=== PATIENT | male | born 1975 | race Caucasian/White ===

== ENCOUNTER → 2020-07-26 14:58 | Outpatient (BNVA) | payer OTHER, SELFPAY | PROVIDERS: Visit Provider Physician Assistant Medical | DX: S16.1XXD Strain of muscle, fascia and tendon at neck level, subsequent encounter (principal); X58.XXXD Exposure to other specified factors, subsequent encounter; R51.9 Headache, unspecified | CPT/HCPCS: 99213 ==

== ENCOUNTER 2020-08-01 14:14 | Outpatient (REF) | payer OTHER, SELFPAY ==
--- NOTE | 2020-08-01 14:20 | MR_ITS ---
EXAMINATION: MR CERVICAL SPINE WITHOUT CONTRAST CLINICAL INFORMATION: Chronic, persistent cervical spine pain. Decreased range of motion. COMPARISON: Cervical spine radiographs from 06/04/2020. TECHNIQUE: MRI of the cervical spine was obtained using routine sequences without contrast. FINDINGS: Reversal the normal cervical lordosis centered on C4. Otherwise, normal anatomic alignment. Moderate degenerative disc disease from C3-C6. Mild degenerative disc disease at C2-C3 and C6-C7. Associated mixed Modic type discogenic endplate changes, including mild Modic type I discogenic edema at C5-C6. Lipid rich hemangioma within the T1 vertebral body. No suspicious marrow edema. Mild degenerative loss of C6 vertebral body height. Otherwise, the vertebral body heights are largely maintained. No spinal cord signal abnormalities demonstrated in 2 planes. Limited evaluation of the soft tissues of the neck without demonstrated abnormalities. The flow voids of the major cervical vessels are maintained. Normal appearance of the cervicomedullary junction and visualized posterior fossa. SPINAL LEVELS: C2-C3: Normal annular contour. There is no uncovertebral joint arthropathy. There is mild bilateral facet joint arthropathy. There is no neural foraminal stenosis. There is no spinal canal stenosis. C3-C4: Moderate disc-osteophyte complex. There is mild to moderate bilateral uncovertebral joint arthropathy. There is mild bilateral facet joint arthropathy. There is mild bilateral neural foraminal stenosis. There is flattening of the ventral cord without overt spinal canal stenosis. C4-C5: Mild disc-osteophyte complex. There is moderate right and mild left uncovertebral joint arthropathy. There is moderate left and mild right facet joint arthropathy. There is mild bilateral neural foraminal stenosis. There is flattening the ventral cord without overt spinal canal stenosis. C5-C6: Moderate disc-osteophyte complex. There is moderate bilateral uncovertebral joint arthropathy. There is mild to moderate bilateral facet joint arthropathy. There is moderate right and mild left neural foraminal stenosis. There is mild spinal canal stenosis. C6-C7: Mild disc-osteophyte complex. There is mild left and no right uncovertebral joint arthropathy. There is moderate left and mild right facet joint arthropathy. There is moderate left and no right neural foraminal stenosis. There is minimal flattening of the left ventral cord with no spinal canal stenosis. C7-T1: Normal annular contour. There is no uncovertebral joint arthropathy. There is no facet joint arthropathy. There is no neural foraminal stenosis. There is no spinal canal stenosis. IMPRESSION: Moderate multilevel degenerative spondyloarthropathy of the cervical spine as described in detail above. Most notably, there is mild spinal canal stenosis at C5-C6. There are mild to moderate neural foraminal stenoses from C3-C7 (worst at C5-C6 and C6-C7).
== END 2020-08-01 14:15 | disposition home or self-care (01) ==
LOC: HO.MRI 14:14
PROVIDERS: Visit Provider Internal Medicine
DX: M54.2 Cervicalgia (principal); R51.9 Headache, unspecified
CPT/HCPCS: 72141

== ENCOUNTER → 2020-08-08 15:27 | Outpatient (BNVA) | payer OTHER, SELFPAY | PROVIDERS: Visit Provider Physician Assistant Medical | DX: M50.30 Other cervical disc degeneration, unspecified cervical region (principal) | CPT/HCPCS: 99213 ==

== ENCOUNTER → 2021-11-27 08:55 | Outpatient (BNVA) | payer OTHER, SELFPAY | PROVIDERS: Visit Provider Physician Assistant | DX: S16.1XXD Strain of muscle, fascia and tendon at neck level, subsequent encounter (principal); S09.90XD Unspecified injury of head, subsequent encounter; X58.XXXD Exposure to other specified factors, subsequent encounter; H93.19 Tinnitus, unspecified ear | CPT/HCPCS: 99214 ==

== ENCOUNTER → 2021-12-04 14:21 | Outpatient (BNVA) | payer OTHER, SELFPAY | PROVIDERS: Visit Provider Physician Assistant | DX: S16.1XXD Strain of muscle, fascia and tendon at neck level, subsequent encounter (principal); S09.90XD Unspecified injury of head, subsequent encounter; X58.XXXD Exposure to other specified factors, subsequent encounter; H93.19 Tinnitus, unspecified ear | CPT/HCPCS: 99213 ==

== ENCOUNTER → 2021-12-12 10:46 | Outpatient (BNVA) | payer OTHER, SELFPAY | PROVIDERS: Visit Provider Physician Assistant | DX: S16.1XXD Strain of muscle, fascia and tendon at neck level, subsequent encounter (principal); S06.9X0D Unspecified intracranial injury without loss of consciousness, subsequent encounter; X58.XXXD Exposure to other specified factors, subsequent encounter; H93.19 Tinnitus, unspecified ear | CPT/HCPCS: 99214 ==

== ENCOUNTER → 2021-12-26 10:31 | Outpatient (BNVA) | payer OTHER, SELFPAY | PROVIDERS: Visit Provider Physician Assistant | DX: S16.1XXD Strain of muscle, fascia and tendon at neck level, subsequent encounter (principal); S06.9X0D Unspecified intracranial injury without loss of consciousness, subsequent encounter; X58.XXXD Exposure to other specified factors, subsequent encounter; H93.19 Tinnitus, unspecified ear | CPT/HCPCS: 99214 ==

== ENCOUNTER → 2022-01-16 15:08 | Outpatient (BNVA) | payer OTHER, SELFPAY | PROVIDERS: Visit Provider Physician Assistant | DX: S16.1XXD Strain of muscle, fascia and tendon at neck level, subsequent encounter (principal); S06.9X0D Unspecified intracranial injury without loss of consciousness, subsequent encounter; X58.XXXD Exposure to other specified factors, subsequent encounter; H93.19 Tinnitus, unspecified ear | CPT/HCPCS: 99214 ==

== ENCOUNTER → 2022-01-30 14:51 | Outpatient (BNVA) | payer OTHER, SELFPAY | PROVIDERS: Visit Provider Physician Assistant | DX: S16.1XXD Strain of muscle, fascia and tendon at neck level, subsequent encounter (principal); S06.9X0D Unspecified intracranial injury without loss of consciousness, subsequent encounter; X58.XXXD Exposure to other specified factors, subsequent encounter; H93.13 Tinnitus, bilateral | CPT/HCPCS: 99213 ==

== ENCOUNTER → 2022-02-20 14:33 | Outpatient (BNVA) | payer OTHER, SELFPAY | PROVIDERS: Visit Provider Physician Assistant | DX: S16.1XXD Strain of muscle, fascia and tendon at neck level, subsequent encounter (principal); S06.9X0D Unspecified intracranial injury without loss of consciousness, subsequent encounter; X58.XXXD Exposure to other specified factors, subsequent encounter | CPT/HCPCS: 99214 ==

== ENCOUNTER → 2022-03-06 15:23 | Outpatient (BNVA) | payer OTHER, SELFPAY | PROVIDERS: Visit Provider Physician Assistant | DX: S16.1XXD Strain of muscle, fascia and tendon at neck level, subsequent encounter (principal); S06.0X0D Concussion without loss of consciousness, subsequent encounter; X58.XXXD Exposure to other specified factors, subsequent encounter; H93.19 Tinnitus, unspecified ear | CPT/HCPCS: 99214 ==

== ENCOUNTER → 2022-04-10 09:48 | Outpatient (BNVA) | payer OTHER, SELFPAY | PROVIDERS: Visit Provider Physician Assistant | DX: S16.1XXD Strain of muscle, fascia and tendon at neck level, subsequent encounter (principal); S06.9X0D Unspecified intracranial injury without loss of consciousness, subsequent encounter; X58.XXXD Exposure to other specified factors, subsequent encounter; H93.19 Tinnitus, unspecified ear | CPT/HCPCS: 99213 ==

== ENCOUNTER → 2022-05-01 14:12 | Outpatient (BNVA) | payer OTHER, SELFPAY | PROVIDERS: Visit Provider Physician Assistant | DX: S16.1XXD Strain of muscle, fascia and tendon at neck level, subsequent encounter (principal); S06.9X0D Unspecified intracranial injury without loss of consciousness, subsequent encounter; X58.XXXD Exposure to other specified factors, subsequent encounter; H93.19 Tinnitus, unspecified ear | CPT/HCPCS: 99214 ==

== ENCOUNTER → 2022-06-04 14:26 | Outpatient (BNVA) | payer OTHER, SELFPAY | PROVIDERS: Visit Provider Physician Assistant | DX: H93.19 Tinnitus, unspecified ear (principal); S16.1XXD Strain of muscle, fascia and tendon at neck level, subsequent encounter; X58.XXXD Exposure to other specified factors, subsequent encounter | CPT/HCPCS: 99213 ==

== ENCOUNTER → 2022-07-02 10:08 | Outpatient (BNVA) | payer OTHER, SELFPAY | PROVIDERS: Visit Provider Physician Assistant | DX: S16.1XXD Strain of muscle, fascia and tendon at neck level, subsequent encounter (principal); W18.30XD Fall on same level, unspecified, subsequent encounter; H93.19 Tinnitus, unspecified ear | CPT/HCPCS: 99213 ==

== ENCOUNTER → 2022-07-25 14:56 | Outpatient (BNVA) | payer OTHER, SELFPAY | PROVIDERS: Visit Provider Physician Assistant | DX: M54.2 Cervicalgia (principal); H93.19 Tinnitus, unspecified ear | CPT/HCPCS: 99213 ==

== ENCOUNTER → 2022-08-21 14:03 | Outpatient (BNVA) | payer OTHER, SELFPAY | PROVIDERS: Visit Provider Physician Assistant | DX: S16.1XXD Strain of muscle, fascia and tendon at neck level, subsequent encounter (principal); S06.9X0D Unspecified intracranial injury without loss of consciousness, subsequent encounter; X58.XXXD Exposure to other specified factors, subsequent encounter; H93.19 Tinnitus, unspecified ear | CPT/HCPCS: 99214 ==

== ENCOUNTER → 2022-09-25 14:23 | Outpatient (BNVA) | payer OTHER, SELFPAY | PROVIDERS: Visit Provider Physician Assistant | DX: S06.9X0D Unspecified intracranial injury without loss of consciousness, subsequent encounter (principal); S16.1XXD Strain of muscle, fascia and tendon at neck level, subsequent encounter; X58.XXXD Exposure to other specified factors, subsequent encounter; H93.19 Tinnitus, unspecified ear | CPT/HCPCS: 99214 ==

== ENCOUNTER → 2022-10-23 13:47 | Outpatient (BNVA) | payer OTHER, SELFPAY | PROVIDERS: Visit Provider Physician Assistant | DX: S06.9X0D Unspecified intracranial injury without loss of consciousness, subsequent encounter (principal); S16.1XXD Strain of muscle, fascia and tendon at neck level, subsequent encounter; X58.XXXD Exposure to other specified factors, subsequent encounter; H93.19 Tinnitus, unspecified ear | CPT/HCPCS: 99213 ==

== ENCOUNTER → 2022-11-21 13:45 | Outpatient (BNVA) | payer OTHER, SELFPAY | PROVIDERS: Visit Provider Physician Assistant | DX: S06.9X0D Unspecified intracranial injury without loss of consciousness, subsequent encounter (principal); S16.1XXD Strain of muscle, fascia and tendon at neck level, subsequent encounter; X58.XXXD Exposure to other specified factors, subsequent encounter; H93.19 Tinnitus, unspecified ear | CPT/HCPCS: 99213 ==

== ENCOUNTER → 2022-12-10 12:59 | Outpatient (BNVA) | payer OTHER, SELFPAY | PROVIDERS: Visit Provider Physician Assistant | DX: S06.9X0D Unspecified intracranial injury without loss of consciousness, subsequent encounter (principal); X58.XXXD Exposure to other specified factors, subsequent encounter; M54.2 Cervicalgia; H93.19 Tinnitus, unspecified ear | CPT/HCPCS: 99213 ==